=== PATIENT | female | born 1995 | race Caucasian/White ===

== ENCOUNTER 2019-06-01 21:12 | Emergency (ER) | payer BC ==
[2019-06-01 22:14] LABS: Urine Blood 3+ (NEG); Urine Glucose NEGATIVE (NEG); Urine Protein 3+ (NEG); Urine pH 8.5 (5.0-7.0)
[2019-06-01 22:47] LABS: Urine Bacteria 20-50 /HPF (<20); Urine Culture Reflex Order NOT NEEDED; Urine RBC TNTC /HPF (NONE SEEN)
--- NOTE | 2019-06-01 22:59 | ER ---
Nurse's Notes [facility] Name: Mihaela Del Cid Age: 23 yrs Sex: Female : 1995 Arrival Date: 06/01/2019 Time: 21:15 Bed 17 Private MD: Diagnosis: Urinary tract infection, site not specified;Hematuria;Dysuria Presentation: 06/01 21:37 Presenting complaint: Patient states: Today I started having a constant urge to urinate aa1 and then I started urinating blood. Transition of care: patient was not received from another setting of care. Onset of symptoms was June 01, 2019. Risk Assessment: Do you want to hurt yourself or someone else? Patient reports no desire to harm self or others. Initial Sepsis Screen: Does the patient meet any 2 criteria? No. Patient's initial sepsis screen is negative. Does the patient have a suspected source of infection? No. Patient's initial sepsis screen is negative. Care prior to arrival: None. 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 - Social history:: Smoking status: Patient/guardian denies using tobacco, never smoked, Patient uses alcohol, occasionally. - Ebola Screening: : Patient negative for fever greater than or equal to 101.5 degrees Fahrenheit, and additional compatible Ebola Virus Disease symptoms Patient denies exposure to infectious person Patient denies travel to an Ebola-affected area in the 21 days before illness onset. Screenin:52 Abuse screen: Denies threats or abuse. Denies injuries from another. Nutritional wh screening: No deficits noted. Tuberculosis screening: No symptoms or risk factors identified. Fall Risk None identified. Assessment: 22:51 General: Appears in no apparent distress. Behavior is calm, cooperative, appropriate wh for age. Pain: Denies pain. Neuro: Level of Consciousness is awake, alert, obeys commands, Oriented to person, place, time, situation, Appropriate for age. Cardiovascular: Capillary refill < 3 seconds. Respiratory: Airway is patent Respiratory effort is even, unlabored, Respiratory pattern is regular, symmetrical. GI: Abdomen is flat, non-distended. : Reports urgency, urinary frequency. EENT: No signs and/or symptoms were reported regarding the EENT system. Derm: Skin is intact, is healthy with good turgor, Skin is pink, warm \T\ dry. normal. Musculoskeletal: Circulation, motion, and sensation intact. Vital Signs: 21:39 BP 127 / 90; Pulse 91; Resp 17; Temp 97.9; Pulse Ox 98% ; Weight 91.63 kg; Height 5 ft. aa1 5 in. (165.10 cm); Pain 0/10; 22:53 BP 120 / 84; Pulse 92; Resp 18; Pulse Ox 99% on R/A; wh 21:39 Body Mass Index 33.61 (91.63 kg, 165.10 cm) aa1 ED Course: 21:15 Patient arrived in ED. as 21:33 Kizzy Bailey FNP-C [facility]. snw 21:33 Yohan Pollack MD is Attending Physician. snw 21:38 Triage completed. aa1 21:40 Arm band placed on right wrist. aa1 22:40 Arian Hook is Primary Nurse. wh 22:53 Patient has correct armband on for positive identification. Bed in low position. Call wh light in reach. Side rails up X 1. Pulse ox on. NIBP on. 23:39 No provider procedures requiring assistance completed. Patient did not have IV access during this emergency room visit. Administered Medications: 23:10 Drug: Pyridium 200 mg Route: PO; 23:33 Follow up: Response: No adverse reaction 23:10 Drug: Phenergan 25 mg Route: PO; 23:33 Follow up: Response: No adverse reaction; Nausea is decreased 23:13 Drug: Rocephin (cefTRIAXone) 1 grams Route: IM; Site: right gluteus; 23:33 Follow up: Response: No adverse reaction Outcome: 22:58 Discharge ordered by . snw 23:40 Discharged to home ambulatory, with friend. 23:40 Condition: stable 23:40 Discharge instructions given to patient, Instructed on discharge instructions, follow up and referral plans. medication usage, POC UTI Demonstrated understanding of instructions, follow-up care, medications, POC Prescriptions given X 3. 23:41 Patient left the ED. Addendum: 06/05/2019 12:56 Addendum: Culture Results: Positive urine culture. No further action required. Bacteria b d sensitive to prescribed antibiotic. Signatures: Litzy Benedict Alissa RN RN aa1 Kizzy Bailey, HEEL SEAM RUBBER-C HEEL SEAM RUBBER-Eitanw Aida Luna Winsy
--- NOTE | 2019-06-01 22:59 | EDPHYS ---
Physician Documentation [facility] Name: Mihaela Del Cid Age: 23 yrs Sex: Female : 1995 Arrival Date: 06/01/2019 Time: 21:15 Bed 17 Private MD: ED Physician Yohan Pollack HPI: 06/01 23:02 This 23 yrs old Female presents to ER via Ambulatory with complaints of snw Urinary Problem. 23:02 Onset: The symptoms/episode began/occurred suddenly, yesterday, and became worse snw hematuria today, no pain, no back pain, + urgency, frequency. Associated signs and symptoms: Pertinent positives: hematuria, Pertinent negatives: fever. Modifying factors: The patient symptoms are alleviated by nothing, the patient symptoms are aggravated by nothing. The patient has not experienced similar symptoms in the past. The patient has not recently seen a physician. 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 - Social history:: Smoking status: Patient/guardian denies using tobacco, never smoked, Patient uses alcohol, occasionally. - Ebola Screening: : Patient negative for fever greater than or equal to 101.5 degrees Fahrenheit, and additional compatible Ebola Virus Disease symptoms Patient denies exposure to infectious person Patient denies travel to an Ebola-affected area in the 21 days before illness onset. ROS: 23:02 Constitutional: Negative for fever, chills, and weight loss, Eyes: Negative for injury, snw pain, redness, and discharge, ENT: Negative for injury, pain, and discharge, Neck: Negative for injury, pain, and swelling, Cardiovascular: Negative for chest pain, palpitations, and edema, Respiratory: Negative for shortness of breath, cough, wheezing, and pleuritic chest pain, Abdomen/GI: Negative for abdominal pain, nausea, vomiting, diarrhea, and constipation, Back: Negative for injury and pain, : Negative for injury, bleeding, discharge, and swelling, +frequency MS/Extremity: Negative for injury and deformity, Skin: Negative for injury, rash, and discoloration, Neuro: Negative for headache, weakness, numbness, tingling, and seizure. Exam: 23:02 Constitutional: This is a well developed, well nourished patient who is awake, alert, snw and in no acute distress. Head/Face: Normocephalic, atraumatic. Eyes: Pupils equal round and reactive to light, extra-ocular motions intact. Lids and lashes normal. Conjunctiva and sclera are non-icteric and not injected. Cornea within normal limits. Periorbital areas with no swelling, redness, or edema. ENT: Nares patent. No nasal discharge, no septal abnormalities noted. Tympanic membranes are normal and external auditory canals are clear. Oropharynx with no redness, swelling, or masses, exudates, or evidence of obstruction, uvula midline. Mucous membranes moist. Neck: Trachea midline, no thyromegaly or masses palpated, and no cervical lymphadenopathy. Supple, full range of motion without nuchal rigidity, or vertebral point tenderness. No Meningismus. Chest/axilla: Normal chest wall appearance and motion. Nontender with no deformity. No lesions are appreciated. Cardiovascular: Regular rate and rhythm with a normal S1 and S2. No gallops, murmurs, or rubs. Normal PMI, no JVD. No pulse deficits. Respiratory: Lungs have equal breath sounds bilaterally, clear to auscultation and percussion. No rales, rhonchi or wheezes noted. No increased work of breathing, no retractions or nasal flaring. Abdomen/GI: Soft, non-tender, with normal bowel sounds. No distension or tympany. No guarding or rebound. No evidence of tenderness throughout. Back: No spinal tenderness. No costovertebral tenderness. Full range of motion. Skin: Warm, dry with normal turgor. Normal color with no rashes, no lesions, and no evidence of cellulitis. MS/ Extremity: Pulses equal, no cyanosis. Neurovascular intact. Full, normal range of motion. Neuro: Awake and alert, GCS 15, oriented to person, place, time, and situation. Cranial nerves II-XII grossly intact. Motor strength 5/5 in all extremities. Sensory grossly intact. Cerebellar exam normal. Normal gait. Psych: Awake, alert, with orientation to person, place and time. Behavior, mood, and affect are within normal limits. Vital Signs: 21:39 BP 127 / 90; Pulse 91; Resp 17; Temp 97.9; Pulse Ox 98% ; Weight 91.63 kg; Height 5 ft. aa1 5 in. (165.10 cm); Pain 0/10; 22:53 BP 120 / 84; Pulse 92; Resp 18; Pulse Ox 99% on R/A; wh 21:39 Body Mass Index 33.61 (91.63 kg, 165.10 cm) aa1 MDM: 22:20 Patient medically screened. snw 23:01 Data interpreted: Pulse oximetry: on room air is 99 %. Interpretation: normal. snw Counseling: I had a detailed discussion with the patient and/or guardian regarding: the historical points, exam findings, and any diagnostic results supporting the discharge/admit diagnosis, lab results, the need for outpatient follow up, to return to the emergency department if symptoms worsen or persist or if there are any questions or concerns that arise at home. Special discussion: Based on the patient's Hx, exam, and Dx evaluation, there is no indication for emergent surgery or inpatient Tx. It is understood by the patient/guardian that if the Sx's persist or worsen they need to return immediately for re-evaluation. I have referred the patient to see his PCP for further evaluation of high blood pressure. Based on the history and exam findings, there is no indication for further emergent testing or inpatient evaluation. I discussed with the patient/guardian the need to see the primary care provider for further evaluation of the symptoms. 06/01 21:45 Order name: Urine Culture snw 06/01 21:45 Order name: Urine Microscopic Only; Complete Time: 22:51 snw 06/01 21:58 Order name: Urine Dipstick--Ancillary (enter results); Complete Time: 22:20 ar5 06/01 21:58 Order name: Urine --Ancillary (enter results); Complete Time: 22:20 ar5 06/01 21:45 Order name: Urine Test (obtain specimen); Complete Time: 22:30 snw 06/01 21:45 Order name: Urine Dipstick-Ancillary (obtain specimen); Complete Time: 22:30 snw Administered Medications: 23:10 Drug: Pyridium 200 mg Route: PO; 23:33 Follow up: Response: No adverse reaction 23:10 Drug: Phenergan 25 mg Route: PO; 23:33 Follow up: Response: No adverse reaction; Nausea is decreased 23:13 Drug: Rocephin (cefTRIAXone) 1 grams Route: IM; Site: right gluteus; 23:33 Follow up: Response: No adverse reaction Disposition: 06/02 07:40 Co-signature as Attending Physician, Yohan Pollack MD I agree with the assessment and shoaib plan of care. Disposition: 06/01/19 22:58 Discharged to Home. Impression: Urinary tract infection, site not specified, Hematuria, Dysuria. - Condition is Stable. - Discharge Instructions: Dysuria, Urinary Tract Infection, Adult, Rehydration, Adult. - Prescriptions for Augmentin 875- 125 mg Oral Tablet - take 1 tablet by ORAL route every 12 hours for 10 days; 20 tablet. Pyridium 200 mg Oral Tablet - take 1 tablet by ORAL route every 8 hours for 3 days; 9 tablet. promethazine 25 mg Oral Tablet - take 1 tablet by ORAL route every 6 hours As needed; 20 tablet. - Work release form, Medication Reconciliation Form, Thank You Letter, Antibiotic Education, Prescription Opioid Use form. - Follow up: Private Physician; When: 2 - 3 days; Reason: Recheck today's complaints, Continuance of care, Re-evaluation by your physician. Follow up: Emergency Department; When: As needed; Reason: Worsening of condition. Signatures: Dispatcher [employer] Jessica Rausch RN RN Yohan Reyes MD MD cha Therrien, Shelly, PIG MACHINE OPERATOR HELPER-C PIG MACHINE OPERATOR HELPER-Arian Child Corrections: (The following items were deleted from the chart) 06/01 23:01 22:57 Chart complete. snw snw 23:41 22:58 06/01/2019 22:58 Discharged to Home. Impression: Urinary tract infection, site wh not specified; Hematuria; Dysuria. Condition is Stable. Forms are Medication Reconciliation Form, Thank You Letter, Antibiotic Education, Prescription Opioid Use. Follow up: Private Physician; When: 2 - 3 days; Reason: Recheck today's complaints, Continuance of care, Re-evaluation by your physician. Follow up: Emergency Department; When: As needed; Reason: Worsening of condition. snw
[2019-06-01] MEDS ORDERED: PHENAZOPYRIDINE 100MG TAB PO ONE (23:05)
[2019-06-01] MEDS ORDERED: WATER FOR INJ,STERILE 10 ML ONE (23:06)
[2019-06-01] MEDS ORDERED: CEFTRIAXONE 1000 MG/VIAL ONE (23:06)
[2019-06-01] MEDS ORDERED: PROMETHAZINE 25 MG TABLET ONE (23:06)
[2019-06-02 01:15] VITALS: TEMP 97.9
[2019-06-02 01:16] VITALS: BP 120/84; O2SAT 99
== END 2019-06-01 23:41 | disposition home or self-care (01) ==
LOC: ER 21:12
DX: N39.0 Urinary tract infection, site not specified (principal); R30.0 Dysuria
CPT/HCPCS: 81003; 81015; 81025; 87077; 87086; 87088; 87186; 96372; 99283; Q0169